=== PATIENT | male | born 2000 | race Hispanic/Latino ===

== ENCOUNTER 2021-06-16 22:30 | Emergency (ER) | payer OTHER ==
[~2021-06-16] VITALS: Ht 175.3 cm; Wt 105.4 kg
[2021-06-16 22:33] VITALS: BP 143/76
[2021-06-17] MEDS ORDERED: LIDO5DIS41 TD (01:15)
[2021-06-17] MEDS ORDERED: CYCL-707 PO (01:15)
== END 2021-06-17 01:40 | disposition home or self-care (01) ==
LOC: M ED 22:30
DX: M54.50 Low back pain, unspecified (principal)

== ENCOUNTER → 2022-07-06 | Outpatient (REF) ==
[~2022-07-06] MED LIST: CYCL-707 PO; LIDO5DIS41 TD
== END ==
LOC: M PLAIMG 09:34
PROVIDERS: ATTEND Internal Medicine
DX: M54.18 Radiculopathy, sacral and sacrococcygeal region (principal); R06.02 Shortness of breath